=== PATIENT | male | born 1955 | race Caucasian/White ===

== ENCOUNTER 2019-04-11 20:59 | Inpatient (IN) | payer MEDICARE ==
[2019-04-11 21:55] LABS: #Eosinphils 0.2 thou/uL (0.0-0.7); #Lymphocytes 1.6 thou/uL (1.20-3.40); #Monocytes 0.7 thou/uL (0.11-0.59); #Neutrophils 3.6 thou/uL (1.40-6.50); %Basophils 0.6 % (0.0-1.0); %Eosinophils 2.6 % (0.0-10.0); %Lymphocytes 25.6 % (21.0-51.0); %Neutrophils 59.2 % (42.0-75.0); Hemoglobin 15.2 g/dL (14.0-18.0); Mean Corpuscular HGB CONC 33.9 g/dL (32.0-36.0); Mean Corpuscular Hemoglobin 29.2 pg (27.0-31.0); Mean Corpuscular Volume 85.9 fL (78.0-98.0); Mean Platelet Volume 7.4 fL (7.4-10.4); Platelet Count 185 thou/uL (130-400); RBC Distribution Width 12.5 % (11.5-14.5); White Blood Cell (WBC) Count 6.1 thou/uL (4.8-10.8)
[2019-04-11 22:18] LABS: ALT (SGPT) 22 U/L (8-55); AST (SGOT) 14 U/L (5-34); Albumin 3.8 g/dL (3.4-4.8); Alkaline Phosphatase 71 U/L (40-110); Anion Gap 12 mmol/L (10-20); BUN (Urea Nitrogen) 24 mg/dL (8.4-25.7); Bilirubin, Total 0.4 mg/dL (0.2-1.2); Calc. Creatinine Clearance 0 mL/min (70-130); Calcium 9.1 mg/dL (7.8-10.44); Carbon Dioxide 26 mmol/L (23-31); Chloride 104 mmol/L (98-107); Estimated GFR-MDRD 27; Globulin 2.9 g/dL (2.4-3.5); Glucose 158 mg/dL (80-115); Lipase 61 U/L (8-78); Potassium 3.7 mmol/L (3.5-5.1); Protein, Total 6.7 g/dL (5.8-8.1); Sodium 138 mmol/L (136-145)
--- NOTE | 2019-04-11 23:35 | CT ---
CT OF THE ABDOMEN AND PELVIS WITHOUT CONTRAST: 04/11/19 INDICATION: Abdominal cramping. FINDINGS: No prior comparison. Imaged lung bases are clear. There is focal inflammation of the right lower abdomen centered about th e cecum and proximal ascending colon with several reactive/enlarged lymph nodes. A normal caliber natty endix is visualized containing air within its lumen. No evidence of small bowel obstruction within th e unopacified bowel. Numerous colonic diverticula are present. No evidence of free air or significant ascites. There is calcified and fat density multifocal cholelithiasis of the gallbladder lumen. Kylee d abdominal organs, bowel, lymph nodes, vasculature are limited in assessment on the basis of noncont rast technique. There is prostate heterogeneity and calcification noted. No acute osseous pathology. Evaluation otherwise limited on the basis of noncontrast technique. IMPRESSION: 1. Focal inflammation about the cecum and proximal ascending colon. Primary considerations would include a focal area of colitis or alternatively inflammation related to a colonic mass. This should be further assessed with follow-up colonoscopy in order to exclude underlying malignancy. 2. Normal caliber appendix. 3. Colonic diverticulosis. 4. Cholelithiasis. POS: [facility]
[2019-04-11] MEDS ORDERED: Pantoprazole 40 MG VIAL ONE (23:56)
[2019-04-12] MEDS ORDERED: cefTRIAXone\\ROCEPHIN 1 GM VIAL ONE (01:08)
[2019-04-12] MEDS ORDERED: Ondansetron PF 4 MG/2 ML Vial IVP PRN ×2 (01:52→06:19)
[2019-04-12] MEDS ORDERED: Ondansetron ODT 4 MG TAB SL PRN (01:52)
[2019-04-12 02:22] VITALS: BMI 29.0
[2019-04-12] MEDS ORDERED: Insulin Regular 300 UNITS/3 ML VIAL SC PRN ×2 (06:14)
[2019-04-12] MEDS ORDERED: Dextrose 50% Abboject 50 ML SYRINGE SLOW IVP PRN (06:14)
[2019-04-12] MEDS ORDERED: Dextrose 5% in Water 1,000 ML IV PRN (06:14)
[2019-04-12] MEDS ORDERED: Calcium Carbonate 500 MG ChewTAB PO PRN (06:19)
[2019-04-12] MEDS ORDERED: Ondansetron ODT 4 MG TAB PO PRN (06:19)
[2019-04-12] MEDS ORDERED: Acetaminophen 325 MG TAB PO PRN (06:19)
--- NOTE | 2019-04-12 06:39 | HP ---
PRIMARY CARE PHYSICIAN: Dr. Opal Allen. PRIMARY STEERSMAN: Dr. Cardoso. CHIEF COMPLAINT: Abdominal discomfort with bleeding per rectum. HISTORY OF PRESENT ILLNESS: The patient is a 63-year-old male with diverticulosis, presented to the emergency room with abdominal discomfort along with bleeding per rectum. One week ago, the patient developed sudden onset of fever along with chills. He later started having diarrhea that has been ongoing for 1 week. He has 1 bowel movement almost every 4 to 5 hours. His bowel movements are loose. Sometimes they were semi-solid. He also had abdominal cramping over the whole week. Yesterday evening, patient had 2 episodes of bleeding per rectum. Each time, he had approximately half cup full. It was bright red in color. He denies any dysuria, hematuria, urgency, or flank pain. He denies any oral ulceration or joint pains. He is currently not on any blood thinners. He has lost approximately 2 pounds over the last 6 months. His last colonoscopy was in 2014. He was admitted for GI bleeding at that time. PAST MEDICAL HISTORY: 1. Diverticulosis. 2. Hypertension. 3. CKD stage 3. 4. Benign prostatic hypertrophy. 5. Glaucoma. 6. Diabetes mellitus type 2. PAST SURGICAL HISTORY: 1. Colonoscopy. 2. Left knee surgery. 3. Cataract surgery. ALLERGIES: THE PATIENT IS ALLERGIC TO SULFA AND RIFAMPIN. CURRENT HOME MEDICATIONS: 1. Lipitor 20 mg daily. 2. Hydralazine 50 mg 3 times a day. 3. Latanoprost one drop in each eye at bedtime. 4. Linagliptin 5 mg daily. 5. Losartan 25 mg daily. 6. Flomax 0.4 mg daily. SOCIAL HISTORY: The patient currently lives at home with his family. He is full code. Denies any current use of tobacco, alcohol, or drug use. FAMILY HISTORY: Negative for GI malignancy. REVIEW OF SYSTEMS: All other review of systems was reviewed and were found negative. PHYSICAL EXAMINATION: VITAL SIGNS: Temperature 99.3, respirations of 18, pulse rate of 83, blood pressure of 140/70, O2 saturation 98% on room air. GENERAL: A 63-year-old male, in no apparent distress. Denies any pain at this time. HEENT: Head, atraumatic and normocephalic. Sclerae anicteric. Moist mucous membranes. No oral lesion. NECK: Supple. No JVD. No carotid bruit. LUNGS: Clear to auscultation bilaterally. No wheezing, rales, or rhonchi. HEART: S1 and S2 present. Regular rate and rhythm. No rubs or gallops. ABDOMEN: Soft, nontender. Bowel sounds present. No rebound or guarding. No costovertebral angle tenderness. EXTREMITIES: No edema or calf tenderness. NEUROLOGIC: Grossly nonfocal. Moves all 4 extremities. PSYCHIATRY: Alert, awake, and oriented x3. SKIN: Warm and dry. LYMPH NODES: No palpable lymph nodes in the neck. PERIPHERAL VASCULAR: Radial pulses palpable bilaterally. MUSCULOSKELETAL: No joint swelling or tenderness. LABORATORY FINDINGS: CBC from yesterday showed WBC of 5.9 with 14% bandemia. Hemoglobin was 16. Creatinine yesterday was 3.24 with a BUN 30, sodium 140, potassium 4.2. Creatinine today is 2.43. His baseline creatinine is around 2. Urinalysis was negative for wbc, bacteria. Stool for occult blood in the emergency room was positive. IMAGING STUDIES: Chest x-ray by my review was negative for infiltrate or edema. CT scan of the abdomen and pelvis without contrast showed focal inflammation about the cecum and proximal ascending colon. Appendix was normal. It also showed colonic diverticulosis and cholelithiasis. IMPRESSION: 1. Fever along with diarrhea of 1-week duration. He has significant bandemia yesterday. His symptoms are suspicious for colitis versus diverticulitis. 2. Acute kidney injury on chronic kidney disease stage 3, probably secondary to dehydration from diarrhea. 3. Diabetes mellitus type 2. His A1c yesterday was 7.6. 4. Hypertension. 5. Glaucoma. 6. Benign prostatic hypertrophy. 7. History of diverticulosis. 8. Cholelithiasis. PLAN: The patient will be monitored on the medical floor. Here, we will start gentle hydration. We will start ceftriaxone and Flagyl. We will add probiotics. Consult Gastroenterology. We will send stool workup. We will recheck labs in a.m. We will add mild sliding scale. Clear liquids for now. Plan of care was discussed with the patient in detail. He stated understanding. Job ID: [id number]
[2019-04-12] MEDS: metroNIDAZOLE 500 MG in Premix Bag 1 BAG IVPB SCH ×3 (07:01→23:30)
[2019-04-12 07:34] LABS: Anion Gap 13 mmol/L (10-20); BUN (Urea Nitrogen) 21 mg/dL (8.4-25.7); Calc. Creatinine Clearance 0 mL/min (70-130); Calcium 8.7 mg/dL (7.8-10.44); Carbon Dioxide 21 mmol/L (23-31); Chloride 106 mmol/L (98-107); Estimated GFR-MDRD 31; Glucose 112 mg/dL (80-115); Potassium 3.7 mmol/L (3.5-5.1); Sodium 136 mmol/L (136-145)
[2019-04-12] MEDS: Saccharomyces boulardii 250 MG CAP PO SCH (09:42)
[2019-04-12] MEDS ORDERED: Azithromycin 200 MG/5 ML Oral Suspension PO SCH (10:00)
--- NOTE | 2019-04-12 11:55 | PDOC.EVN ---
Event Note - Event Note Event Note: The chart reviewd, events noted.
[2019-04-12] MEDS ORDERED: FLU VACC TS2019-20(65YR UP)/PF 180 MCG/0.5 ML SYRINGE IM ONE (21:00)
--- NOTE | 2019-04-13 01:52 | CON ---
DATE OF CONSULTATION: 04/12/2019 REASON FOR CONSULTATION: Diarrhea, hematochezia. CONSULTING PROVIDER: Ronen Stacy MD. HISTORY OF PRESENT ILLNESS: The patient is a 63-year-old male with past medical history of hypertension, chronic kidney disease stage 3, BPH, glaucoma, diabetes, and diverticulosis presenting with lower abdominal pain, diarrhea and hematochezia. He states that he was in his usual state of health until approximately 7 days ago when he began having increased fevers and chills. This continued for the next 2 to 3 days and ultimately coalesced into having diarrhea for the next 4 days having approximately 4-5 semi-solid bowel movements per day with no difficulty with defecation. Then approximately 2 days ago, he began having bright red blood per rectum, characterized as blood present both on the toilet paper and in the stool with blood present only with the passage of stool (no grossly bloody bowel movements). This was also associated with increased suprapubic abdominal pain characterized as a "rumbling"/cramping type sensation radiated to the lower abdominal quadrants and reached a severity of 3 to 4/10. The pain was worse with not having a bowel movement, but better with having a bowel movement where he would not experience complete resolution of the pain after successful defecation. Upon questioning the patient, he does endorse sick contacts where his had recently returned from [place] and did have a similar type of constellation of symptoms including abdominal pain, diarrhea, and fever. He currently denies any nausea, vomiting, hematemesis, melena, dysphagia, odynophagia, or weight loss. REVIEW OF SYSTEMS: A 10-category review of systems was obtained with all responses negative except for the pertinent positives as listed in HPI. PAST MEDICAL HISTORY: As per HPI. PAST SURGICAL HISTORY: Left knee surgery, cataract surgery, and colonoscopy. FAMILY HISTORY: Denies any GI malignancies. SOCIAL HISTORY: Denies any tobacco, alcohol, or illicit drug use. OUTPATIENT MEDICATIONS: 1. Lipitor 20 mg daily. 2. Hydralazine 50 mg 3 times daily. 3. Latanoprost 1 drop in each eye at bedtime. Linagliptin 5 mg daily. 4. Losartan 25 mg daily. 5. Flomax 0.4 mg daily. ALLERGIES: SULFA AND RIFAMPIN. PHYSICAL EXAMINATION: VITAL SIGNS: Temperature 98.9, pulse 76, blood pressure 118/67, respiratory rate 16, saturating 95% on room air. GENERAL: The patient was lying in bed, in no acute distress. Alert and oriented x4. HEENT: Normocephalic, atraumatic. NECK: Supple. No JVD or scleral icterus noted. CARDIOVASCULAR: Regular rate and rhythm with no discernible murmurs, gallops, or rubs. RESPIRATORY: Clear to auscultation bilaterally with no discernible wheezes or rales. ABDOMEN: Normoactive bowel sounds. Soft, nontender, nondistended. EXTREMITIES: No cyanosis, clubbing, or edema. LABORATORY DATA: CBC with a white blood cell count of 6.1, hemoglobin 15.2, hematocrit 44.7, platelets 185. Chemistry with a sodium of 136, potassium 3.7, chloride 106, CO2 21, BUN 21, creatinine 2.16, glucose 112, AST 14, ALT 22, alkaline phosphatase 71, total bilirubin 0.4. Infectious stool studies were negative for Clostridium difficile and E. coli, but positive for Campylobacter. IMAGING DATA: CT of the abdomen and pelvis was obtained on April 11, 2019, which showed focal inflammation around the cecum and proximal ascending colon with several reactive lymph nodes. There was normal-appearing appendix and numerous colonic diverticula without evidence of diverticulosis. ASSESSMENT AND PLAN: The patient is a 63-year-old male with past medical history of hypertension, chronic kidney disease stage 3, benign prostatic hypertrophy, glaucoma, diabetes, and diverticulosis presenting with diarrhea, hematochezia, and abdominal pain consistent with Campylobacteriosis. Campylobacter infection. The patient's recently returned from [place] with increased abdominal pain and diarrhea and shortly after her return, the patient began having symptoms of fevers, chills, diarrhea and ultimately hematochezia with blood mixed in with the stool. On review of his labs, the infectious stool studies were positive for Campylobacter jejuni, which could generate all the above constellation of symptoms. The CT imaging obtained thus far also shows focal inflammation on the cecum and proximal ascending colon, also consistent with more of an infectious type process. Given that Campylobacter is sensitive to azithromycin, this would be an appropriate antibiotic choice. RECOMMENDATIONS: 1. We would continue IV fluids and pain control per primary team. 2. We will continue azithromycin 500 mg daily for the next 3-4 days for treatment of Campylobacter infection. 3. We will continue to monitor stool output and if not improving over the next 24-48 hours, could consider endoscopic evaluation for other pathological process. 4. We will continue to follow peripherally. Please call with any questions. Job ID: [id number]
[2019-04-13] MEDS ORDERED: cefTRIAXone\\ROCEPHIN 1 GM in Sodium Chloride 0.9% 100 ML IVPB SCH (02:00)
[2019-04-13 05:49] LABS: #Eosinphils 0.1 thou/uL (0.0-0.7); #Lymphocytes 1.7 thou/uL (1.20-3.40); #Monocytes 0.7 thou/uL (0.11-0.59); %Basophils 0.7 % (0.0-1.0); %Eosinophils 2.8 % (0.0-10.0); %Lymphocytes 38.2 % (21.0-51.0); %Monocytes 14.6 % (0.0-10.0); %Neutrophils 43.8 % (42.0-75.0); Hemoglobin 13.7 g/dL (14.0-18.0); Mean Corpuscular HGB CONC 34.2 g/dL (32.0-36.0); Mean Corpuscular Hemoglobin 29.1 pg (27.0-31.0); Mean Corpuscular Volume 85.2 fL (78.0-98.0); Mean Platelet Volume 7.1 fL (7.4-10.4); Platelet Count 181 thou/uL (130-400); RBC Distribution Width 12.3 % (11.5-14.5); Red Blood Cell (RBC) Count 4.69 mill/uL (4.70-6.10); White Blood Cell (WBC) Count 4.5 thou/uL (4.8-10.8)
[2019-04-13 06:16] LABS: ALT (SGPT) 16 U/L (8-55); AST (SGOT) 14 U/L (5-34); Albumin 3.2 g/dL (3.4-4.8); Alkaline Phosphatase 53 U/L (40-110); Anion Gap 10 mmol/L (10-20); BUN (Urea Nitrogen) 13 mg/dL (8.4-25.7); Bilirubin, Total 0.4 mg/dL (0.2-1.2); Calc. Creatinine Clearance 52 mL/min (70-130); Calcium 8.6 mg/dL (7.8-10.44); Carbon Dioxide 26 mmol/L (23-31); Chloride 106 mmol/L (98-107); Estimated GFR-MDRD 36; Globulin 2.6 g/dL (2.4-3.5); Glucose 105 mg/dL (80-115); Magnesium 1.9 mg/dL (1.6-2.6); Potassium 3.9 mmol/L (3.5-5.1); Protein, Total 5.8 g/dL (5.8-8.1); Sodium 138 mmol/L (136-145)
[2019-04-13] MEDS: metroNIDAZOLE 500 MG in Premix Bag 1 BAG IVPB SCH ×3 (06:39→22:42)
[2019-04-13] MEDS ORDERED: Azithromycin 200 MG/5 ML Oral Suspension PO SCH (09:00)
[2019-04-13] MEDS: Azithromycin 200 MG/5 ML Oral Suspension PO SCH (09:38)
[2019-04-13] MEDS: Saccharomyces boulardii 250 MG CAP PO SCH (09:38)
--- NOTE | 2019-04-13 10:55 | PDOC.HOSPP ---
- Subjective Encounter Date: 04/13/19 Encounter Time: 10:30 Subjective: One diarrheic stolls still morning.. - Objective Vital Signs & Weight: Vital Signs (12 hours) Temp Pulse Resp BP BP BP Pulse Ox 04/13/19 08:30 97.8 F 62 16 116/67 97 04/13/19 04:00 98.9 F 65 12 126/73 92 L 04/13/19 00:00 98.9 F 65 16 114/69 95 Weight Admit Weight 208 lb 3 oz Weight 208 lb 3 oz I&O: 04/12/19 04/13/19 04/14/19 06:59 06:59 06:59 Intake Total 240 2185 Output Total 600 Balance 240 1585 Result Diagrams: 04/13/19 05:41 04/13/19 05:41 Additional Labs: Accuchecks 04/12/19 04/12/19 04/12/19 20:35 15:58 11:07 POC Glucose 134 H 98 134 H Hospitalist ROS - Medication Medications: Active Medications Generic Name Dose Route Start Last Admin Trade Name Zahida PRN Reason Stop Dose Admin Azithromycin 500 mg 04/13/19 09:00 04/13/19 09:38 Zithromax PO 04/16/19 09:01 500 mg DAILY BAM Administration Metronidazole 500 mg/ Device 100 mls @ 100 mls/hr 04/12/19 07:00 04/13/19 06: 39 IVPB 100 mls Q8H BAM Administration Saccharomyces Boulardii 250 mg 04/12/19 09:00 04/13/19 09:38 Florastor PO 250 mg DAILY BAM Administration Sodium Chloride 10 ml 04/12/19 09:00 04/13/19 09:38 Flush - Normal Saline IVF Not Given Q12HR BAM - Exam General Appearance: NAD Neck: supple Heart: RRR Respiratory: CTAB Gastrointestinal: soft, non-tender Extremities: no edema Psychiatric: normal affect, A&O x 3 Hosp A/P (1) Campylobacter diarrhea Code(s): A04.5 - CAMPYLOBACTER ENTERITIS Status: Acute Plan: Continue Azithromycin... Diarrhea has improved.. (2) HTN (hypertension) Code(s): I10 - ESSENTIAL (PRIMARY) HYPERTENSION Status: Acute Plan: BP satisfactory.. Continue current therapy.. (3) Diabetes Code(s): E11.9 - TYPE 2 DIABETES MELLITUS WITHOUT COMPLICATIONS Status: Acute Plan: BS satisfactory.. Continue current therapy. (4) Renal insufficiency Status: Acute Plan: Acute on chronic, Serum creatinine lower.. f/u chemistry.. (5) Renal insufficiency Status: Acute
[2019-04-14] MEDS: metroNIDAZOLE 500 MG in Premix Bag 1 BAG IVPB SCH (06:05)
[2019-04-14 08:09] LABS: Anion Gap 10 mmol/L (10-20); BUN (Urea Nitrogen) 12 mg/dL (8.4-25.7); Calc. Creatinine Clearance 56 mL/min (70-130); Calcium 8.7 mg/dL (7.8-10.44); Carbon Dioxide 27 mmol/L (23-31); Chloride 106 mmol/L (98-107); Estimated GFR-MDRD 39; Glucose 107 mg/dL (80-115); Potassium 3.7 mmol/L (3.5-5.1); Sodium 139 mmol/L (136-145)
[2019-04-14 08:40] VITALS: BP 119/70; TEMP 98.3
--- NOTE | 2019-04-14 09:31 | PDOC.HOSPP ---
- Subjective Encounter Date: 04/14/19 Encounter Time: 09:20 Subjective: NO complaint.. Last diarrheic stool yesterday. - Objective Vital Signs & Weight: Vital Signs (12 hours) Temp Pulse Resp BP Pulse Ox 04/14/19 08:15 98.3 F 52 L 18 119/70 96 Weight Admit Weight 208 lb 3 oz Weight 208 lb 3 oz I&O: 04/13/19 04/14/19 04/15/19 06:59 06:59 06:59 Intake Total 2185 930 Output Total 600 Balance 1585 930 Result Diagrams: 04/13/19 05:41 04/14/19 07:26 Additional Labs: Accuchecks 04/14/19 04/13/19 04/13/19 06:07 20:51 16:16 POC Glucose 89 128 H 124 H 04/13/19 11:30 POC Glucose 110 Hospitalist ROS - Medication Medications: Active Medications Generic Name Dose Route Start Last Admin Trade Name Freq PRN Reason Stop Dose Admin Azithromycin 500 mg 04/13/19 09:00 04/13/19 09:38 Zithromax PO 04/16/19 09:01 500 mg DAILY BAM Administration Metronidazole 500 mg/ Device 100 mls @ 100 mls/hr 04/12/19 07:00 04/14/19 06: 05 IVPB 100 mls Q8H BAM Administration Saccharomyces Boulardii 250 mg 04/12/19 09:00 04/13/19 09:38 Florastor PO 250 mg DAILY BAM Administration Sodium Chloride 10 ml 04/12/19 09:00 04/13/19 20:36 Flush - Normal Saline IVF 10 ml Q12HR BAM Administration - Exam General Appearance: NAD Neck: supple, no JVD Heart: RRR Respiratory: CTAB Gastrointestinal: soft Extremities: no edema Neurological: no focal deficits Hosp A/P (1) Campylobacter diarrhea Code(s): A04.5 - CAMPYLOBACTER ENTERITIS Status: Acute Plan: Diarrhea resolved. Home if OK with GI. (2) HTN (hypertension) Code(s): I10 - ESSENTIAL (PRIMARY) HYPERTENSION Status: Chronic Plan: Contolled. (3) Diabetes Code(s): E11.9 - TYPE 2 DIABETES MELLITUS WITHOUT COMPLICATIONS Status: Acute (4) Renal insufficiency Status: Acute (5) Renal insufficiency Status: Acute Plan: Better. - Plan Home if ok with GI.
[2019-04-14] MEDS: Saccharomyces boulardii 250 MG CAP PO SCH (10:16)
[2019-04-14] MEDS: Azithromycin 200 MG/5 ML Oral Suspension PO SCH (10:16)
--- NOTE | 2019-04-14 10:31 | PDOC.EVN ---
Event Note - Event Note Event Note: Discharge summary: Admitting date: 04/12/2019 Discharge date Diagnosis; Infectious diarrhea with hematochezia. Aute kidney ijury with underlying CKD. HTN, BPH Consultants: Dr. Chen of GI. Course of hospitalization: responded well to therapy. Procedure: abdomen CT. For today's progress note, see progress notes section. See discharge medications reconciliation sheet. To f/u with PCP and GI. Discharge time 31 min.
[2019-04-14] MEDS ORDERED: Tamsulosin HCl 0.4 MG CAP PO SCH (10:45)
[2019-04-14] MEDS ORDERED: Latanoprost 0.005% Ophth Soln 2.5 ml Bottle EA EYE SCH (21:00)
[2019-04-14] MEDS ORDERED: Atorvastatin Calcium 20 MG TAB PO SCH (21:00)
[2019-04-15] MEDS ORDERED: Alogliptin 25 MG TAB PO SCH (09:00)
--- NOTE | 2019-04-16 07:27 | PQF ---
[employer] Crystal Reports [employer] DUANE Herron MINISTERIO SHEEHAN [id number] CLINICAL DOCUMENTATION CLARIFICATION FORM: POST DISCHARGE Addendum to original discharge summary date: ____ Late entry note date: __ DATE: 04/14/2019 ATTN:MINISTERIO SHEEHAN Please exercise your independent, professional judgment in responding to the clarification form. Clinical indicators are provided on the bottom of this form for your review Please check appropriate box(s): Conflicting documentation was noted in the Medical Record, please clarify if patient is being treated/monitored for: [ ] Acute kidney injury [ ] Acute renal insufficiency [ ] Other diagnosis [ ] Unable to determine For continuity of documentation, please document condition throughout progress notes and discharge summary. Thank You. CLINICAL INDICATORS - SIGNS / SYMPTOMS/ LABS --Acute kidney injury with underlying CKD-Event note, 04/14, Ministerio Sheehan MD - Renal insufficiency status: Acute- Hospital PN, 04/14, Ministerio Sheehan MD - PMH: CKD stage 3-H&P, 04/12, Tawanna Hardwick MD - Creatinine was 3.24-H&P, 04/12, Tawanna Hardwick MD - Acute kidney injury on CKD stage 3, probably sec to dehydration from diarrhea- H&P, 04/12, Tawanna Hardwick MD RISK FACTORS -Hypertension-ED record, 04/11, Roma Bird DO -Campylobacter diarrhea- Hospital PN, 04/14, Ministerio Sheehan MD TREATMENT -Sodium chloride.IV-MAR, 04/12 (This form is maintained as a part of the permanent medical record) 2014 [employer]. All Rights Reserved Bayron Grace [not provided] [not provided] MTDD
== END 2019-04-14 11:40 | disposition home or self-care (01) | DRG 372 ==
LOC: ERS 20:59 → ONC 04-12 01:45 → OBSVTOIN 04-12 12:17
PROVIDERS: ADMIT Internal Medicine; ATTEND Internal Medicine
DX: A04.5 Campylobacter enteritis (principal); N17.9 Acute kidney failure, unspecified; I12.9 Hypertensive chronic kidney disease with stage 1 through stage 4 chronic kidney disease, or unspecified chronic kidney disease; N40.0 Benign prostatic hyperplasia without lower urinary tract symptoms; E11.9 Type 2 diabetes mellitus without complications; E86.0 Dehydration; K80.20 Calculus of gallbladder without cholecystitis without obstruction; N18.3 Chronic kidney disease, stage 3 (moderate); Z88.2 Allergy status to sulfonamides; Z88.8 Allergy status to other drugs, medicaments and biological substances
CPT/HCPCS: 36415; 36416; 74176; 80048; 80053; 81001; 82274; 83036; 83630; 83690; 83735; 85025; 86140; 86850; 86900; 86901; 87045; 87046; 87324; 87427; 87449; 96365; 96375; C9113; J0696

== ENCOUNTER 2022-05-24 06:49 | Emergency (ER) | payer MEDICARE ==
[2022-05-24] MEDS ORDERED: Morphine 4 MG/ML VIAL ONE (09:36)
== END 2022-05-24 10:35 | disposition home or self-care (01) ==
LOC: ERS 06:49
DX: S32.048A Other fracture of fourth lumbar vertebra, initial encounter for closed fracture (principal); E11.9 Type 2 diabetes mellitus without complications; I10 Essential (primary) hypertension; W11.XXXA Fall on and from ladder, initial encounter; Z79.899 Other long term (current) drug therapy
CPT/HCPCS: 72072; 72131; 72192; 96372; J2270

== ENCOUNTER 2022-09-19 07:25 | Inpatient (IN) | payer MEDICARE, OTHER ==
[2022-09-16 09:12] VITALS: BMI 30.1
[2022-09-19] MEDS ORDERED: Fentanyl 250 MCG/5 ML VIAL ONE (09:07)
[2022-09-19] MEDS ORDERED: Levofloxacin 500 mg/D5W 100 ml Premix Bag ONE (09:13)
[2022-09-19] MEDS ORDERED: Hyoscyamine SL 0.125 MG TAB SL PRN (09:14)
[2022-09-19] MEDS ORDERED: Acetaminophen 325 MG TAB PO PRN (09:17)
[2022-09-19] MEDS ORDERED: B & O PR PRN (09:18)
[2022-09-19] MEDS ORDERED: Ondansetron PF 4 MG/2 ML Vial ONE (09:19)
[2022-09-19] MEDS ORDERED: Dexamethasone 20 MG/5 ML VIAL ONE (09:19)
[2022-09-19] MEDS ORDERED: Lidocaine 1% PF 5 ML VIAL ONE (09:19)
[2022-09-19] MEDS ORDERED: Phenylephrine 10 MG/ML VIAL ONE (09:19)
[2022-09-19] MEDS ORDERED: ePHEDrine 50 MG/ML VIAL ONE (09:19)
[2022-09-19] MEDS ORDERED: PROPOFOL 200 MG/20 ML VIAL ONE (09:19)
[2022-09-19] MEDS ORDERED: Promethazine HCl 25 MG/ML VIAL IM PRN (10:21)
[2022-09-19] MEDS ORDERED: Ondansetron HCl/PF 4 MG/2 ML Vial IVP PRN (10:21)
[2022-09-19] MEDS ORDERED: FENTANYL 50 MCG/ML 1 ML VIAL ONE (11:53)
[2022-09-19] MEDS ORDERED: Dextrose 5% in Water 1,000 ML IV PRN (15:58)
[2022-09-19] MEDS ORDERED: Dextrose 50% Abboject 50 ML SYRINGE SLOW IVP PRN (15:58)
[2022-09-19] MEDS ORDERED: HumaLOG 300 UNITS/3 ML VIAL SC PRN (15:58)
[2022-09-19] MEDS: D5 1/2 NS w/20 mEq KCL 1,000 ML IV SCH ×2 (17:54→20:45)
[2022-09-19] MEDS: hydrALAZINE 25 MG TAB PO SCH (20:43)
[2022-09-19] MEDS: Docusate 100 MG CAP PO SCH (20:43)
[2022-09-19] MEDS: Atorvastatin Calcium 10 MG TAB PO SCH (20:44)
[2022-09-19] MEDS: Insulin Glargine 30 UNITS/0.3 ML VIAL SC SCH (21:03)
[2022-09-19] MEDS: Brimonidine Tartrate 0.2% Ophth Soln 5 ml Bottle EA EYE SCH (21:39)
[2022-09-19] MEDS: Timolol 0.5% Ophth Soln 5 ml Bottle EA EYE SCH (21:40)
[2022-09-19] MEDS: Latanoprost 0.005% Ophth Soln 2.5 ml Bottle EA EYE SCH (21:41)
[2022-09-20] MEDS: D5 1/2 NS w/20 mEq KCL 1,000 ML IV SCH (04:00)
[2022-09-20] MEDS: Docusate 100 MG CAP PO SCH ×2 (09:25→20:19)
[2022-09-20] MEDS: hydrALAZINE 25 MG TAB PO SCH ×2 (09:25→20:19)
[2022-09-20] MEDS: Brimonidine Tartrate 0.2% Ophth Soln 5 ml Bottle EA EYE SCH ×2 (09:25→20:18)
[2022-09-20] MEDS: Amlodipine 10 MG TAB PO SCH (09:25)
[2022-09-20] MEDS: Timolol 0.5% Ophth Soln 5 ml Bottle EA EYE SCH ×2 (09:26→20:18)
[2022-09-20] MEDS: Latanoprost 0.005% Ophth Soln 2.5 ml Bottle EA EYE SCH (20:18)
[2022-09-20] MEDS: Atorvastatin Calcium 10 MG TAB PO SCH (20:19)
[2022-09-20] MEDS: Insulin Glargine 30 UNITS/0.3 ML VIAL SC SCH (20:19)
[2022-09-21 06:29] LABS: #Basophils 0.1 thou/uL (0.0-0.2); #Eosinphils 0.2 thou/uL (0.0-0.7); #Lymphocytes 2.6 thou/uL (1.20-3.40); #Monocytes 0.6 thou/uL (0.11-0.59); #Neutrophils 5.9 thou/uL (1.40-6.50); %Basophils 0.7 % (0.0-1.0); %Eosinophils 2.2 % (0.0-10.0); %Lymphocytes 27.7 % (21.0-51.0); %Monocytes 6.2 % (0.0-10.0); %Neutrophils 63.3 % (42.0-75.0); Mean Corpuscular HGB CONC 32.7 g/dL (32.0-36.0); Mean Corpuscular Hemoglobin 29.8 pg (27.0-31.0); Mean Corpuscular Volume 90.9 fl (78.0-98.0); Mean Platelet Volume 8.1 fL (7.4-10.4); Platelet Count 149 10x3/uL (130-400); RBC Distribution Width 12.7 % (11.5-14.5); Red Blood Cell (RBC) Count 4.71 mill/uL (4.70-6.10); White Blood Cell (WBC) Count 9.3 10x3/uL (4.8-10.8)
[2022-09-21 06:49] LABS: Anion Gap 10 mmol/L (10-20); BUN (Urea Nitrogen) 25 mg/dL (8.4-25.7); Calc. Creatinine Clearance 49 mL/min (70-130); Calcium 9.2 mg/dL (7.8-10.44); Carbon Dioxide 27 mmol/L (23-31); Chloride 109 mmol/L (98-107); Estimated GFR 35; Glucose 85 mg/dL (80-115); Potassium 3.8 mmol/L (3.5-5.1); Sodium 142 mmol/L (136-145)
[2022-09-21 08:27] VITALS: TEMP 98
[2022-09-21] MEDS: Timolol 0.5% Ophth Soln 5 ml Bottle EA EYE SCH (09:35)
[2022-09-21] MEDS: Brimonidine Tartrate 0.2% Ophth Soln 5 ml Bottle EA EYE SCH (09:35)
[2022-09-21] MEDS: Amlodipine 10 MG TAB PO SCH (09:35)
[2022-09-21] MEDS: Docusate 100 MG CAP PO SCH (09:36)
[2022-09-21] MEDS: hydrALAZINE 25 MG TAB PO SCH (09:36)
[2022-09-21 11:59] VITALS: BP 134/79
== END 2022-09-21 14:58 | disposition home or self-care (01) | DRG 714 ==
LOC: SDC 07:25 → OBSVTOIN 09:14 → SURG B 09:14
PROVIDERS: ADMIT Urology; ATTEND Urology
PROC: 0VB08ZZ Excision of Prostate, Via Natural or Artificial Opening Endoscopic (ICD-10-PCS; principal; 2022-09-19)
DX: N40.1 Benign prostatic hyperplasia with lower urinary tract symptoms (principal); H40.9 Unspecified glaucoma; I12.9 Hypertensive chronic kidney disease with stage 1 through stage 4 chronic kidney disease, or unspecified chronic kidney disease; E11.22 Type 2 diabetes mellitus with diabetic chronic kidney disease; M18.30 Unilateral post-traumatic osteoarthritis of first carpometacarpal joint, unspecified hand; Z88.2 Allergy status to sulfonamides; Z88.7 Allergy status to serum and vaccine; Z88.1 Allergy status to other antibiotic agents; Z79.4 Long term (current) use of insulin; Z79.899 Other long term (current) drug therapy
CPT/HCPCS: 36415; 36416; 80048; 85025; 88305; J1100; J1815; J1956; J2370; J2405; J2704; J3010; J3480; J3490

== ENCOUNTER 2025-01-31 12:28 | Inpatient (IN) | payer MEDICARE ==
[2025-01-31] MEDS ORDERED: Iopamidol-370 76% 500 ML MDV (1 ML CHARGE) ONE (12:56)
[2025-01-31 14:00] LABS: #Basophils 0.07 10x3/uL (0.0-0.2); #Eosinophils 0.40 10x3/uL (0.0-0.7); #Monocytes 0.71 10x3/uL (0.11-0.59); #Neutrophils 6.04 10x3/uL (1.40-6.50); %Basophils 0.7 % (0.0-1.0); %Eosinophils 4.1 % (0.0-10.0); %Lymphocytes 26.5 % (21.0-51.0); %Monocytes 7.2 % (0.0-10.0); %Neutrophils 61.2 % (42.0-75.0); Hematocrit 41.6 % (42.0-52.0); Hemoglobin 14.5 g/dL (14.0-18.0); Mean Corpuscular Hemoglobin 30.0 pg (27.0-31.0); Mean Corpuscular Volume 86.0 fL (78.0-98.0); Platelet Count 197 10x3/uL (130-400); Red Blood Cell (RBC) Count 4.84 mill/uL (4.70-6.10); White Blood Cell (WBC) Count 9.87 10x3/uL (4.8-10.8)
[2025-01-31 14:22] LABS: ALT (SGPT) 26 U/L (Less than 45); AST (SGOT) 22 U/L (11-34); Albumin 4.4 g/dL (3.1-4.5); Alkaline Phosphatase 66 U/L (40-110); Anion Gap 13 mmol/L (10-20); BUN (Urea Nitrogen) 21 mg/dL (8.4-25.7); Bilirubin, Total 0.6 mg/dL (0.3-1.2); Calc. Creatinine Clearance 0 mL/min (70-130); Calcium 9.6 mg/dL (7.8-10.44); Carbon Dioxide 27 mmol/L (23-31); Chloride 103 mmol/L (98-107); Globulin 2.9 g/dL (2.4-3.5); Glucose 126 mg/dL (83-110); Lipase 34 U/L (8-78); Potassium 3.4 mmol/L (3.5-5.1); Sodium 140 mmol/L (136-145)
[2025-01-31] MEDS ORDERED: Pantoprazole 40 MG VIAL ONE (14:33)
[2025-01-31 15:13] LABS: INR-International Normal Ratio 1.0; PTT 33.6 sec (22.9-36.1); Prothrombin Time 13.6 sec (12.0-14.7)
[2025-01-31 15:15] LABS: Troponin I 0.012 ng/mL (< 0.028)
[2025-01-31] MEDS ORDERED: Melatonin 3 MG TAB PO PRN (15:16)
[2025-01-31] MEDS ORDERED: Ondansetron PF 4 MG/2 ML Vial IVP PRN (15:16)
[2025-01-31] MEDS ORDERED: Acetaminophen 325 MG TAB PO PRN (15:16)
[2025-01-31] MEDS ORDERED: Electrolyte Replacement Protocol 1 EACH FS SCH (15:30)
[2025-01-31] MEDS ORDERED: Glucagon 1 MG/ML KIT IM PRN (17:38)
[2025-01-31] MEDS ORDERED: Dextrose 50% Abboject 50 ML SYRINGE SLOW IVP PRN (17:38)
[2025-01-31] MEDS: cefTRIAXone\\ROCEPHIN 1 GM in Sodium Chloride 0.9% 100 ML IVPB SCH (19:06)
[2025-01-31] MEDS: metroNIDAZOLE 500 MG TAB PO SCH (20:27)
[2025-01-31] MEDS: Brimonidine Tartrate 0.2% Ophth Soln 5 ml Bottle EA EYE SCH (20:28)
[2025-01-31] MEDS: Insulin Glargine 30 UNITS/0.3 ML VIAL SC SCH (20:29)
[2025-01-31] MEDS ORDERED: Brimonidine Tartrate 0.2% Ophth Soln 5 ml Bottle L EYE SCH (21:00)
[2025-01-31 23:30] LABS: Hematocrit 33.9 % (42.0-52.0); Hemoglobin 11.5 g/dL (14.0-18.0)
[2025-02-01 04:33] LABS: #Basophils 0.04 10x3/uL (0.0-0.2); #Eosinophils 0.26 10x3/uL (0.0-0.7); #Monocytes 0.56 10x3/uL (0.11-0.59); #Neutrophils 6.98 10x3/uL (1.40-6.50); %Basophils 0.4 % (0.0-1.0); %Eosinophils 2.7 % (0.0-10.0); %Lymphocytes 19.3 % (21.0-51.0); %Monocytes 5.7 % (0.0-10.0); %Neutrophils 71.5 % (42.0-75.0); Hematocrit 34.2 % (42.0-52.0); Hemoglobin 11.6 g/dL (14.0-18.0); Mean Corpuscular Hemoglobin 30.0 pg (27.0-31.0); Mean Corpuscular Volume 88.4 fL (78.0-98.0); Platelet Count 173 10x3/uL (130-400); Red Blood Cell (RBC) Count 3.87 mill/uL (4.70-6.10); White Blood Cell (WBC) Count 9.76 10x3/uL (4.8-10.8)
[2025-02-01 05:01] LABS: ALT (SGPT) 21 U/L (Less than 45); AST (SGOT) 18 U/L (11-34); Albumin 3.4 g/dL (3.1-4.5); Alkaline Phosphatase 50 U/L (40-110); Anion Gap 12 mmol/L (10-20); BUN (Urea Nitrogen) 18 mg/dL (8.4-25.7); Bilirubin, Total 0.5 mg/dL (0.3-1.2); Calc. Creatinine Clearance 0 mL/min (70-130); Calcium 8.6 mg/dL (7.8-10.44); Carbon Dioxide 27 mmol/L (23-31); Chloride 106 mmol/L (98-107); Globulin 2.3 g/dL (2.4-3.5); Glucose 84 mg/dL (83-110); Potassium 3.6 mmol/L (3.5-5.1); Sodium 141 mmol/L (136-145)
[2025-02-01 05:39] VITALS: BMI 29.5
[2025-02-01] MEDS: GoLYTELY 4,000 ml Bottle PO SCH (17:26)
[2025-02-01] MEDS: cefTRIAXone\\ROCEPHIN 1 GM in Sodium Chloride 0.9% 100 ML IVPB SCH (17:27)
[2025-02-02 04:48] LABS: #Basophils 0.06 10x3/uL (0.0-0.2); #Eosinophils 0.30 10x3/uL (0.0-0.7); #Monocytes 0.63 10x3/uL (0.11-0.59); #Neutrophils 4.55 10x3/uL (1.40-6.50); %Basophils 0.7 % (0.0-1.0); %Eosinophils 3.7 % (0.0-10.0); %Lymphocytes 31.7 % (21.0-51.0); %Monocytes 7.7 % (0.0-10.0); %Neutrophils 56.0 % (42.0-75.0); Hematocrit 29.9 % (42.0-52.0); Hemoglobin 10.0 g/dL (14.0-18.0); Mean Corpuscular Hemoglobin 29.2 pg (27.0-31.0); Mean Corpuscular Volume 87.2 fL (78.0-98.0); Platelet Count 157 10x3/uL (130-400); Red Blood Cell (RBC) Count 3.43 mill/uL (4.70-6.10); White Blood Cell (WBC) Count 8.14 10x3/uL (4.8-10.8)
[2025-02-02 05:13] LABS: Anion Gap 12 mmol/L (10-20); BUN (Urea Nitrogen) 15 mg/dL (8.4-25.7); Calc. Creatinine Clearance 55 mL/min (70-130); Calcium 8.3 mg/dL (7.8-10.44); Carbon Dioxide 26 mmol/L (23-31); Chloride 110 mmol/L (98-107); Glucose 107 mg/dL (83-110); Potassium 3.5 mmol/L (3.5-5.1); Sodium 144 mmol/L (136-145)
[2025-02-02] MEDS ORDERED: PROPOFOL 20 ML ONE ×3 (07:52→08:45)
[2025-02-02] MEDS ORDERED: Lidocaine 1% PF 5 ML VIAL ONE (07:53)
[2025-02-02] MEDS: Brimonidine Tartrate 0.2% Ophth Soln 5 ml Bottle EA EYE SCH (09:40)
[2025-02-02] MEDS: Potassium Chloride 20 MEQ in Premix 1 BAG IVPB SCH (09:41)
[2025-02-03 08:24] VITALS: TEMP 98
[2025-02-03 11:32] VITALS: BP 112/71
[2025-02-03 11:36] LABS: #Basophils 0.06 10x3/uL (0.0-0.2); #Eosinophils 0.25 10x3/uL (0.0-0.7); #Monocytes 0.61 10x3/uL (0.11-0.59); #Neutrophils 5.57 10x3/uL (1.40-6.50); %Basophils 0.7 % (0.0-1.0); %Eosinophils 2.8 % (0.0-10.0); %Lymphocytes 26.3 % (21.0-51.0); %Monocytes 6.9 % (0.0-10.0); %Neutrophils 63.0 % (42.0-75.0); Hematocrit 32.5 % (42.0-52.0); Hemoglobin 11.0 g/dL (14.0-18.0); Mean Corpuscular Hemoglobin 29.7 pg (27.0-31.0); Mean Corpuscular Volume 87.8 fL (78.0-98.0); Platelet Count 191 10x3/uL (130-400); Red Blood Cell (RBC) Count 3.70 mill/uL (4.70-6.10); White Blood Cell (WBC) Count 8.85 10x3/uL (4.8-10.8)
[2025-02-03 12:05] LABS: Anion Gap 14 mmol/L (10-20); BUN (Urea Nitrogen) 18 mg/dL (8.4-25.7); Calc. Creatinine Clearance 48 mL/min (70-130); Calcium 9.2 mg/dL (7.8-10.44); Carbon Dioxide 26 mmol/L (23-31); Chloride 106 mmol/L (98-107); Glucose 142 mg/dL (83-110); Potassium 4.0 mmol/L (3.5-5.1); Sodium 142 mmol/L (136-145)
== END 2025-02-03 13:31 | disposition home or self-care (01) | DRG 378 ==
LOC: ERS 12:28 → SURG B 15:14 → OBS 18:37 → OBSVTOIN 02-01 13:51
PROVIDERS: ADMIT Internal Medicine; ATTEND Family Medicine
PROC: 3E03329 Introduction of Other Anti-infective into Peripheral Vein, Percutaneous Approach (ICD-10-PCS; 2025-01-31)
PROC: 0DBK8ZZ Excision of Ascending Colon, Via Natural or Artificial Opening Endoscopic (ICD-10-PCS; principal; 2025-02-02)
PROC: 0DBL8ZZ Excision of Transverse Colon, Via Natural or Artificial Opening Endoscopic (ICD-10-PCS; 2025-02-02)
PROC: 0DBM8ZZ Excision of Descending Colon, Via Natural or Artificial Opening Endoscopic (ICD-10-PCS; 2025-02-02)
DX: K57.31 Diverticulosis of large intestine without perforation or abscess with bleeding (principal); D62 Acute posthemorrhagic anemia; E11.22 Type 2 diabetes mellitus with diabetic chronic kidney disease; N18.30 Chronic kidney disease, stage 3 unspecified; I12.9 Hypertensive chronic kidney disease with stage 1 through stage 4 chronic kidney disease, or unspecified chronic kidney disease; E78.5 Hyperlipidemia, unspecified; H40.9 Unspecified glaucoma; Z88.8 Allergy status to other drugs, medicaments and biological substances; Z88.2 Allergy status to sulfonamides; Z98.890 Other specified postprocedural states; Z79.899 Other long term (current) drug therapy; Z79.82 Long term (current) use of aspirin
CPT/HCPCS: 36415; 36416; 74177; 80048; 80053; 83690; 84484; 85025; 85610; 85730; 86850; 86900; 86901; 88305; 93005; 96374; 96375; C1889; G0378; J0696; J1815; J2470; J2704; J3480; Q9967